=== PATIENT | female | born 1990 | race African-American/Black ===

== ENCOUNTER 2017-01-25 05:12 | Emergency (ER) | payer MEDICAID, OTHER ==
[~2017-01-25] VITALS: Ht 162.6 cm; Wt 80.0 kg
[~2017-01-25 05:12] MED LIST: AMOX500T PO; HYDR-3498 PO; IBUP-1542 PO; NAPR-688 PO; PHEN118L PO; SODI44SP11 NS
[2017-01-25 05:15] VITALS: Ht 162.6 cm; Wt 80.0 kg
[2017-01-25] MEDS ORDERED: IBUP-1542 PO (05:42)
[2017-01-25] MEDS ORDERED: AMO500 PO (05:42)
[2017-01-25] MEDS ORDERED: PRED50TA PO (05:42)
--- NOTE | 2017-01-25 05:50 | ERD ---
ER Documentation Chief Complaint Date/Time DATE: 01/25/17 TIME: 05:48 Chief Complaint sore throat, body aches HPI 36-year-old female presents here in emergency department for complaint of sore throat horses of the fourth and bodyaches that started 2 days ago. Patient's complaining of pain in the throat, throbbing pain, 6/10 scale, is worse upon swallowing. Patient denies any shortness breath or stridor. Patient denies any fever or chills. ROS All systems reviewed and are negative except as per history of present illness. Medications Home Meds Active Scripts Prednisone* (Prednisone*) 50 Mg Tablet, 50 MG PO DAILY, #3 TAB Prov:LELE ANTON NP 01/25/17 Ibuprofen* (Motrin*) 600 Mg Tab, 600 MG PO Q6H Y for PAIN AND OR ELEVATED TEMP, #30 TAB Prov:LELE ANTON NP 01/25/17 Amoxicillin* (Amoxicillin*) 500 Mg Cap, 500 MG PO TID for 10 Days, CAP Prov:LELE ANTON NP 01/25/17 Amoxicillin Trihydrate (Amoxicillin) 500 Mg Tablet, 500 MG PO Q8, #21 TAB Prov:ALYSSA KOLB DO 11/09/15 Naproxen* (Naproxen*) 500 Mg Tablet, 500 MG PO BID, #14 TAB Prov:ALYSSA KOLB DO 11/09/15 Hydrocodone Bit-Acetaminophen* ([place]*) 5-325 Mg Tab, 1 TAB PO Q6 Y for PAIN, # 7 TAB Prov:ALYSSA KOLB DO 11/09/15 Phenylephrine/Diphenhydramine (DIMETAPP COLD & CONGEST LIQUID) 118 Ml Liquid, 5 ML PO Q4H Y for COUGH, #4 OZ Prov:VERNA WHITE NP 03/23/15 Sodium Chloride (Saline Nasal George) 45 Ml George, 2 SPRAY NS Q2H, #1 BOT Prov:VERNA WHITE NP 03/23/15 Ibuprofen* (Motrin*) 600 Mg Tab, 600 MG PO Q6H Y for PAIN AND OR ELEVATED TEMP, #30 Prov:VERNA WHITE NP 03/23/15 Reported Medications [None] No Conflict Check 11/27/09 Allergies Allergies: Coded Allergies: No Known Allergies (Verified Allergy, Mild, 01/25/17) PMhx/Soc History of Surgery: No Anesthesia Reaction: No Hx Neurological Disorder: No Hx Respiratory Disorders: No Hx Cardiac Disorders: No Hx Psychiatric Problems: No Hx Miscellaneous Medical Probl: Yes (STREP PHARYNGITIS) Hx Alcohol Use: Yes (SOMETIMES) Hx Substance Use: No Hx Tobacco Use: Yes Smoking Status: Current some day smoker FmHx Family History: No coronary disease, No diabetes, No other Physical Exam Vitals Vital Signs Date Time Temp Pulse Resp B/P Pulse Ox O2 Delivery O2 Flow Rate FiO2 01/25/17 05:15 98.0 90 20 123/77 99 Physical Exam GENERAL: The patient is well developed and appropriate for usual state of health, in no apparent distress. HEENT: Atraumatic. Ears: Normal tympanic membrane, no erythema or bulging. No ear canal swelling. No ear discharge. Nose: normal nasal turbinates, no erythema or swelling. Normal nasal discharge. Throat: oropharynx Erythematous with hoarseness of the voice noted. No tonsillar swelling or tonsillar exudates. No lymphadenopathy. CHEST: Clear to auscultation bilaterally. There are no rales, wheezes or rhonchi. HEART: Regular rate and rhythm. No murmurs, clicks, rubs or gallops. No S3 or S4. ABDOMEN: Soft, nontender and nondistended. Good bowel sounds. No rebound or guarding. No gross peritonitis. No gross organomegaly or masses. No Kearney sign or McBurney point tenderness. BACK: No midline or flank tenderness. EXTREMITIES: Equal pulses bilaterally. There is no peripheral clubbing, cyanosis or edema. No focal swelling or erythema. Full range of motion. Grossly neurovascularly intact. NEURO: Alert and oriented. Cranial nerves 2-12 intact. Motor strength in all 4 extremities with 5/5 strength. Sensation grossly intact. Normal speech and gait. SKIN: There is no apparent rash or petechia. The skin is warm and dry. HEMATOLOGIC AND LYMPHATIC: There is no evidence of excessive bruising or lymphedema. No gross cervical, axillary, or inguinal lymphadenopathy. Procedures/MDM Medical decision making: Patient symptoms is likely consistent with acute bacterial pharyngitis, w/ laryngitis. Low suspicion for peritonsillar abscess, mononucleosis, no symptoms of epiglottitis, No oral airway obstruction noted. No symptoms of sepsis at this time. Patient appears well and is hemodynamically stable. Patient was given for amoxicillin, ibuprofen, Prednisone, is advised to follow-up with primary care doctor in 2-3 days for reevaluation of symptoms. Patient is advised to do salt water gargles. Patient is advised to return to emergency department for worsening symptoms. Disposition: Home. Stable. Departure Diagnosis: Primary Impression: Laryngitis Condition: Stable Patient Instructions: Laryngitis LELE ANTON NP Jan 25, 2017 05:50
== END 2017-01-25 06:02 | disposition home or self-care (01) ==
LOC: FTE 05:12
DX: J04.0 Acute laryngitis (principal); F17.210 Nicotine dependence, cigarettes, uncomplicated
CPT/HCPCS: 99284

== ENCOUNTER 2017-12-06 14:00 | Inpatient (IN) | END 2017-12-12 16:15 | disposition home or self-care (01) | DRG 775 ==